=== PATIENT | female | born 1975 | race Caucasian/White ===

== ENCOUNTER 2022-03-29 14:36 | Outpatient (CLI) | payer OTHER, SELFPAY ==
--- NOTE | ~2022-03-29 | MM_ITS ---
EXAMINATION: MM screening [facility] BI w bridger HISTORY: Screening mammogram TECHNIQUE: Craniocaudal and mediolateral oblique 3-D tomosynthesis images were obtained and synthetic 2-D images were generated. CAD analysis was submitted and interpreted. COMPARISON: 04/08/2013 bilateral screening mammogram BREAST PARENCHYMAL COMPOSITION: The breasts are heterogeneously dense, which may obscure small masses . FINDINGS: Occasional calcified microhematomas and numerous bilateral punctate benign microcalcificati ons are noted in the breasts. Architectural distortion and asymmetry in the outer right breast. Diagnostic right mammogram and righ t breast ultrasound examination are recommended. 7.5 mm mass is suggested in the posterior mid left breast on MLO view (MLO Tomosynthesis image 11/50) . Additional masses of either breast may be obscured by the heterogeneously dense stroma. IMPRESSION: 1. Asymmetry and architectural distortion in the outer right breast; there is a history of prior meme gn right breast biopsy. 7.5 cm mass suggested in the posterior mid left breast. Additional masses are not excluded considering the heterogeneous dense stroma of both breasts. 2. Diagnostic bilateral mammogram and bilateral breast ultrasound examination are recommended BI-RADS Category 0: Incomplete: Needs additional imaging evaluation. Reviewed, dictated and finalized at location A. H SHADER IMPRESSION: 1. Asymmetry and architectural distortion in the outer right breast; there is a history of prior benign right breast biopsy. 7.5 cm mass suggested in the post erior mid left breast. Additional masses are not excluded considering the heter ogeneous dense stroma of both breasts. 2. Diagnostic bilateral mammogram and bilateral breast ultrasound examination a re recommended BI-RADS Category 0: Incomplete: Needs additional imaging evaluation.
== END 2022-03-29 14:37 | disposition home or self-care (01) ==
PROVIDERS: PCP Internal Medicine; Visit Provider Obstetrics & Gynecology
DX: Z12.31 Encounter for screening mammogram for malignant neoplasm of breast (principal); R92.8 Other abnormal and inconclusive findings on diagnostic imaging of breast
CPT/HCPCS: 77063; 77067

== ENCOUNTER → 2022-06-07 07:52 | Outpatient (CLI) | payer OTHER, SELFPAY ==
--- NOTE | ~2022-06-07 | MMUS_ITS ---
EXAMINATION: MM diagnostic [facility] BI w bridger, US breast BI complete HISTORY: Follow-up possible architectural distortion. TECHNIQUE: Additional 3-D tomosynthesis images of the breasts were performed and synthetic 2-D images were generated. CAD analysis was submitted and interpreted. High resolution bilateral complete breas t ultrasound was performed. COMPARISON: Comparison to multiple prior studies sequentially, with oldest reviewed study dated 04/08. BREAST PARENCHYMAL COMPOSITION: The breasts are heterogeneously dense, which may obscure small masses FINDINGS: MAMMOGRAPHIC FINDINGS: The breasts are stable. There are bilateral scattered benign-appearing breast calcifications. No new masses, calcifications or architectural distortion. ULTRASOUND: Complete bilateral US of all 4 quadrants of the breasts and retroareolar region was reviewed. There a re multiple simple and minimally complicated cyst of both breasts. No suspicious masses are identifie d in either breast to suggest malignancy. IMPRESSION: 1. No evidence for malignancy in either breast. Benign findings. 2. Routine yearly screening mammogram and regular clinical breast examination are recommended. BI-RADS Category 2: Benign finding(s). Reviewed, dictated and finalized at location A. IMPRESSION: 1. No evidence for malignancy in either breast. Benign findings. 2. Routine yearly screening mammogram and regular clinical breast examination a re recommended. BI-RADS Category 2: Benign finding(s).
== END ==
PROVIDERS: PCP Obstetrics & Gynecology; Visit Provider Obstetrics & Gynecology
DX: R92.8 Other abnormal and inconclusive findings on diagnostic imaging of breast (principal)
CPT/HCPCS: 76641; 77062; 77066; G0279

== ENCOUNTER 2023-02-24 02:53 | Day surgery (SDC) | payer OTHER, SELFPAY ==
[2023-02-08 13:00] VITALS: BMI 16.7
--- NOTE | 2023-02-22 10:27 | SUR.PREOP ---
Patient called regarding upcoming procedure. Message left on patient's voicemail regarding preop instructions, appointment times, and procedure prep.
[2023-02-24 11:31] VITALS: BP 120/82; PULSE 100; RESP 20; TEMP 36.6; O2SAT 100
[2023-02-24] MEDS: LACTATED RINGERS 1,000 ML 150 ML IV CONT (11:40)
--- NOTE | 2023-02-24 11:44 | P.PNAN_ITS ---
Anes - Initial Pre Proc Eval Procedure: Operation Date: 02/24/23 12:30 Proposed Procedures p Colonoscopy - Larry Rm MD Date/Time: 02/24/23 11:44 Surgeon: Larry Rm MD Pre Op Diagnosis: neoplasm screening Patient Data Age: 47 Gender: F Height: 1.65 m Weight: 44.9 kg Last Vital Signs Temp 97.8 F 02/24/23 11:31 Pulse 100 02/24/23 11:31 Resp 20 02/24/23 11:31 BP 120/82 02/24/23 11:31 Pulse Ox 100 02/24/23 11:31 O2 Del Method Room Air 02/24/23 11:31 Allergies Allergy/AdvReac Type Severity Reaction Status Date / Time azithromycin Allergy Intermediate RASH Verified 02/24/23 11:29 Home Medications Medication Instructions Recorded Confirmed Type No Home Medications 02/08/23 02/08/23 History Patient hx anesthesia problems: none Family hx anesthesia problems: none Results Review: All pre-operative results and documents have been reviewed as part of the pre-operative evaluation. [facility] Surgical History Surgical History History of appendectomy 1983 History of lumpectomy 2020 S/P LASIK surgery of both eyes 2004 Family History Family History (Updated 09/07/22 @ 15:25 by Regina Hamilton MA) Sibling Diabetes mellitus Hypertension Heart disease Mother Hypertension Lupus Rheumatoid arthritis Father Hypertension Heart disease Grandparent Diabetes mellitus Hypertension Heart disease Social History Social History (Updated 09/07/22 @ 15:22 by Regina Hamilton MA) Smoking status: Never smoker Alcohol intake: current Substance use type: does not use Lack of Transportation: No Lack of Food: Never True Current Housing: I Have Housing Concerned About Future Housing: No Difficulty Paying Gas/Electric Bills: No Difficulty Paying for Meds: No Currently Unemployed: No Education: Master's Degree or Higher Difficulty w/ Childcare or Family Care: No Living arrangements: other Additional living arrangements comments: with sp Anes - Eval Final PreProcedure Day of Procedure 02/24/23 11:44 Patient weight: normal Heart: regular rate and rhythm Lungs: clear to auscultation Airway: Mallampati scale class 1 Neurological: alert and oriented Last oral intake: >/= 8 hours ASA classification: II Emergent: no Anesthetic plan: proceed Anesthesia type and monitoring: general GIVS and standard monitoring Results Review: All pre-operative results and documents have been reviewed as part of the pre- operative evaluation. Informed Consent: The patient's anesthetic plan and its attendant risks and benefits were discussed with the patient/family/POA. Questions were solicited and answers provided to the satisfaction of the patient/family/POA.
--- NOTE | 2023-02-24 12:49 | PM.HPGS ---
History of Present Illness History of Present Illness Consent: Risks, benefits, and alternatives have been discussed and questions answered. Patient agrees to proceed with procedure. Chief complaint: neoplasm screening Narrative: Alicia Casarez is a 47 year old female here for first screening colonoscopy Review of Systems Constitutional: Constitutional: Denies headache(s) and Denies weakness Eyes: Eyes: Denies blurry vision ENT: Reports Normal hearing present, Denies headache(s) and Denies neck pain Cardiovascular: Cardiovascular: Denies chest pain and Denies dyspnea Respiratory: Respiratory: Denies dyspnea Gastrointestinal: Gastrointestinal: Reports no additional gastrointestinal complaints Genitourinary: Genitourinary: Denies dysuria Musculoskeletal: Musculoskeletal: Denies neck pain Integumentary/Breasts: Skin/Breast: Denies dry skin Neurologic: Reports Normal hearing present, Denies headache(s) and Denies weakness Psychiatric: Psychiatric: Denies anxiety Endocrine: Endocrine: Denies change in body appearance Hematologic/Lymphatic: Hematologic/Lymphatic: Denies easy bleeding Allergic/Immunologic: Allergic/Immunologic: Denies urticaria PMFSH Past Medical History Medical History (Updated 02/24/23 @ 12:50 by Larry Rm MD) Colon cancer screening Surgical History Surgical History History of appendectomy 1983 History of lumpectomy 2020 S/P LASIK surgery of both eyes 2004 Family History Family History (Updated 09/07/22 @ 15:25 by Regina Hamilton MA) Sibling Diabetes mellitus Hypertension Heart disease Mother Hypertension Lupus Rheumatoid arthritis Father Hypertension Heart disease Grandparent Diabetes mellitus Hypertension Heart disease Social History Social History (Updated 09/07/22 @ 15:22 by Regina Hamilton MA) Smoking status: Never smoker Alcohol intake: current Substance use type: does not use Lack of Transportation: No Lack of Food: Never True Current Housing: I Have Housing Concerned About Future Housing: No Difficulty Paying Gas/Electric Bills: No Difficulty Paying for Meds: No Currently Unemployed: No Education: Master's Degree or Higher Difficulty w/ Childcare or Family Care: No Living arrangements: other Additional living arrangements comments: with sp Meds Home Medications and Allergies Home Medications Medication Instructions Recorded Confirmed Type No Home Medications 02/08/23 02/08/23 History Allergies Allergy/AdvReac Type Severity Reaction Status Date / Time azithromycin Allergy Intermediate RASH Verified 02/24/23 11:29 Vital Signs Vital Signs - 24 hr 02/24/23 11:31 Temperature 97.8 F Pulse Rate 100 Respiratory Rate 20 Blood Pressure 120/82 Pulse Oximetry 100 Oxygen Delivery Room Air Exam Const: General: comfortable and no acute distress HENMT: Face/Nose/Sinus: Normal nares present Eyes: General: appearance normal, both eyes and all related structures Neck: Neck: no JVD Resp: Auscultation: clear to auscultation bilaterally Cardio: Rate: regular rate Rhythm: regular rhythm GI: Inspection: non-distended GI Palp: Yes Soft to palpation Skin: General skin exam: normal color Neuro: General: gait normal Speech: normal speech Extrem: General: normal to inspection Psych: Mental Status: mental status grossly normal Assessment and Plan Assessment and plan (1) Colon cancer screening: Code(s): Z12.11 - Encounter for screening for malignant neoplasm of colon Status: Acute Assessment and Plan: colonoscopy
[2023-02-24 13:17] VITALS: BP 109/72; PULSE 80; RESP 14; O2SAT 98
[2023-02-24 13:27] VITALS: BP 120/75; PULSE 118; RESP 28; O2SAT 99
[2023-02-24 13:37] VITALS: BP 121/86; PULSE 76; RESP 14; O2SAT 99
== END 2023-02-24 13:45 | disposition home or self-care (01) ==
PROVIDERS: PCP Internal Medicine; Visit Provider Internal Medicine Gastroenterology
PROC: 0DJD8ZZ Inspection of Lower Intestinal Tract, Via Natural or Artificial Opening Endoscopic (ICD-10-PCS; CPT 45378; principal; 2023-02-24 12:30)
DX: Z12.11 Encounter for screening for malignant neoplasm of colon (principal)
CPT/HCPCS: 45378; J2704; J7120

== ENCOUNTER 2023-06-19 10:28 | Outpatient (CLI) | payer OTHER, SELFPAY ==
--- NOTE | ~2023-06-19 | MM_ITS ---
EXAMINATION: MM screening [facility] BI w bridger HISTORY: Screening TECHNIQUE: Craniocaudal and mediolateral oblique 3-D tomosynthesis images were obtained and synthetic 2-D images were generated. CAD analysis was submitted and interpreted. COMPARISON: 03/29/2022 BREAST PARENCHYMAL COMPOSITION: Dense: The breasts are heterogeneously dense, which may obscure small masses FINDINGS: Stable benign-appearing bilateral breast calcifications and bilateral breast asymmetries. T here is no evidence of suspicious mass, calcification, or architectural distortion to suggest maligna ncy in either breast. There has been no suspicious interval change. IMPRESSION: 1. No mammographic evidence of malignancy. 2. Recommend routine screening mammography in one year. BI-RADS Category 2: Benign finding(s). Reviewed, dictated and finalized at location A.
== END 2023-06-19 10:29 ==
LOC: MICIMG 10:30
PROVIDERS: PCP Obstetrics & Gynecology; Visit Provider Obstetrics & Gynecology
DX: Z12.31 Encounter for screening mammogram for malignant neoplasm of breast (principal)
CPT/HCPCS: 77063; 77067

== ENCOUNTER 2024-06-25 15:20 | Outpatient (CLI) | payer OTHER, SELFPAY ==
--- NOTE | ~2024-06-25 | MM_ITS ---
EXAMINATION: MM screening [facility] BI w bridger HISTORY: Screening TECHNIQUE: Craniocaudal and mediolateral oblique 3-D tomosynthesis images were obtained and synthetic 2-D images were generated. CAD analysis was submitted and interpreted. COMPARISON: Comparison to multiple prior studies sequentially, with oldest reviewed study dated 11/2020. BREAST PARENCHYMAL COMPOSITION: Dense: The breasts are extremely dense, which lowers the sensitivity of mammography. FINDINGS: The right breast is stable. No new masses, calcifications or architectural distortion. Ther e is scattered benign-appearing bilateral breast calcifications. There are developing nodular asymmet rosie centered in the lower inner quadrant of the left breast, anterior third. IMPRESSION: 1. Developing nodular asymmetries of the left breast, lower inner quadrant, anterior third. 2. Additional mammographic views and possible breast ultrasound are recommended. BI-RADS Category 0: Incomplete: Needs additional imaging evaluation. Reviewed, dictated and finalized at location A. IMPRESSION: 1. Developing nodular asymmetries of the left breast, lower inner quadrant, ant erior third. 2. Additional mammographic views and possible breast ultrasound are recommended . BI-RADS Category 0: Incomplete: Needs additional imaging evaluation.
== END 2024-06-25 15:21 | disposition home or self-care (01) ==
LOC: MICIMG 15:21
PROVIDERS: PCP Internal Medicine; Visit Provider Obstetrics & Gynecology
DX: Z12.31 Encounter for screening mammogram for malignant neoplasm of breast (principal); R92.8 Other abnormal and inconclusive findings on diagnostic imaging of breast
CPT/HCPCS: 77063; 77067

== ENCOUNTER 2024-07-25 08:52 | Outpatient (CLI) | payer OTHER, SELFPAY ==
--- NOTE | ~2024-07-25 | MMUS_ITS ---
EXAMINATION: MM diagnostic michael LT w bridger, US breast LT complete HISTORY: Follow-up left breast asymmetries TECHNIQUE: Additional 3-D tomosynthesis images of the left breast were performed and synthetic 2-D im ages were generated. CAD analysis was submitted and interpreted. High resolution complete left breast ultrasound was performed. COMPARISON: Comparison to multiple prior studies sequentially, with oldest reviewed study dated 11/2020. BREAST PARENCHYMAL COMPOSITION: Dense: The breasts are extremely dense, which lowers the sensitivity of mammography. FINDINGS: MAMMOGRAPHIC FINDINGS: There are small obscured masses in the subareolar location of the left breast. There is stable benign -appearing left breast calcifications. ULTRASOUND: Complete US of all 4 quadrants of the left breast/s and retroareolar region was reviewed. At 1:00, 1 cm from the nipple there is a 4 mm cyst. At 2:00, 4 cm from the nipple there is a 3 mm cyst. At 4:00, 4 cm from the nipple there is an oval hypoechoic mass with circumscribed margins measuring 5 mm, lik guillermo benign. No internal vascularity or posterior features. At 9:00, 2 cm from the nipple there is a 3 mm oval hypoechoic mass with low level internal echoes, no internal vascularity and no posterior fea tures, likely benign. At 9:00 in the subareolar location there is a 6 mm cyst. IMPRESSION: 1. Probable benign left breast masses at 4:00, 4 cm from the nipple and 9:00, 2 cm from the nipple. A dditional benign simple cyst are present in the left breast, described above. 2. Recommend 6 month follow-up Limited left breast ultrasound BI-RADS category 3, probably benign findings. Reviewed, dictated and finalized at location A. IMPRESSION: 1. Probable benign left breast masses at 4:00, 4 cm from the nipple and 9:00, 2 cm from the nipple. Additional benign simple cyst are present in the left [address], described above. 2. Recommend 6 month follow-up Limited left breast ultrasound BI-RADS category 3, probably benign findings.
== END 2024-07-25 08:53 | disposition home or self-care (01) ==
LOC: MICIMG 08:52
PROVIDERS: PCP Internal Medicine; Visit Provider Obstetrics & Gynecology
DX: R92.8 Other abnormal and inconclusive findings on diagnostic imaging of breast (principal)
CPT/HCPCS: 76641; 77061; 77065; G0279

== ENCOUNTER 2025-01-31 10:30 | Outpatient (CLI) | payer OTHER, SELFPAY ==
--- NOTE | ~2025-01-31 | US_ITS ---
US breast LT limited 01/31/2025 10:47 Indication: Six-month follow-up left breast masses Procedure: High-resolution Limited ultrasound of the left breast Comparison: Comparison to multiple prior studies sequentially, with oldest reviewed study dated 06/19/2023. Findings: At 4:00, 4 cm from the nipple there is a 4 mm simple cyst. At 9:00, 2 cm from the nipple there is a minimally complicated cyst measuring 4 mm without significant change. No suspicious masses to suggest malignancy. No significant interval change. Impression: 1: No sonographic evidence for malignancy in the left breast. Benign findings. Routine yearly screening mammogram and regular clinical breast examination are recommended. BI-RADS CATEGORY 2 - BENIGN FINDINGS Reviewed, dictated and finalized at location B. FEEDER Impression: 1: No sonographic evidence for malignancy in the left breast. Benign findings. Routine yearly screening mammogram and regular clinical breast examination are recommended. BI-RADS CATEGORY 2 - BENIGN FINDINGS
== END 2025-01-31 10:31 | disposition home or self-care (01) ==
LOC: ANHFOHIMG 10:32
PROVIDERS: PCP Internal Medicine; Visit Provider Obstetrics & Gynecology
DX: R92.8 Other abnormal and inconclusive findings on diagnostic imaging of breast (principal)
CPT/HCPCS: 76642